=== PATIENT | female | born 1950 | race Caucasian/White ===

== ENCOUNTER 2022-08-07 09:46 | Outpatient (CLI) | payer MEDICARE | END 2022-08-07 09:47 | disposition home or self-care (01) | LOC: MADLAB 09:46 → MADRAD 09:47 | PROVIDERS: ATTEND Internal Medicine | DX: J45.50 Severe persistent asthma, uncomplicated (principal); J84.9 Interstitial pulmonary disease, unspecified | CPT/HCPCS: 71046 ==